=== PATIENT | female | born 1950 | race Two or more races ===

== ENCOUNTER 2021-05-29 10:07 | Emergency (ER) | payer OTHER ==
[~2021-05-29] VITALS: Ht 152.4 cm; Wt 68.0 kg
[2021-05-29] MEDS ORDERED: HYDROmorphone HCL 2 MG/ML VL IM ONE (10:45)
[2021-05-29] MEDS ORDERED: ONDANSETRON HCL 4 MG/2 ML VIAL IM ONE (10:45)
[2021-05-29 12:00] VITALS: BP 102/45
[2021-05-29] MEDS ORDERED: IBUPROFEN 800 MG TAB PO ONE (15:15)
== END 2021-05-29 17:45 | disposition home or self-care (01) ==
LOC: ER 10:07 → EDBD 10:07 → ER 17:45
DX: M16.12 Unilateral primary osteoarthritis, left hip (principal); I10 Essential (primary) hypertension; Z88.2 Allergy status to sulfonamides
CPT/HCPCS: 72192; 96372; 99285; J1170; J2405